=== PATIENT | female | born 1960 | race Two or more races ===

== ENCOUNTER 2022-11-03 20:55 | Emergency (ER) | payer MEDICARE, OTHER ==
[~2022-11-03] VITALS: Ht 165.1 cm; Wt 50.0 kg
[2022-11-03 22:00] LABS: Basophils # (auto) 0 10 ^3/uL (0-0.2); Basophils % (auto) 0.3 % (0.0-2.0); Eosinophils # (auto) 0.1 10 ^3/uL (0-0.8); Eosinophils % (auto) 1.1 % (0.0-7.0); Hematocrit 36.8 % (36.0-46.0); Hemoglobin 12.6 g/dL (12.2-16.2); Lymphocytes # (auto) 1.8 10 ^3/uL (0.4-5.4); Lymphocytes % (auto) 30.6 % (10.0-50.0); Mean Corpuscular Hemoglobin 31.8 pg (28.0-32.0); Mean Corpuscular Hgb Conc. 34.3 g/dL (32.0-36.0); Mean Corpuscular Volume 92.7 fL (80.0-100.0); Monocytes # (auto) 0.5 10 ^3/uL (0-1.3); Monocytes % (auto) 9.4 % (0.0-12.0); Neutrophils # (auto) 3.4 10 ^3/uL (1.6-8.6); Neutrophils % (auto) 58.6 % (37.0-80.0); Nucleated Red Blood Cells % 0.1 %; Red Blood Cells 3.97 10^6/uL (4.0-5.20); Red Cell Distribution Width 13.2 % (11.8-14.3); White Blood Cell 5.9 10^3/uL (4.4-10.8)
[2022-11-03 22:23] LABS: INR 1.01 (0.9-1.15); Partial Thromboplastin Time 27.3 sec (24.6-33.4)
[2022-11-03 22:26] LABS: Albumin 3.6 g/dL (3.4-5.0); Calcium 8.6 mg/dL (8.5-10.1); Potassium 3.7 mmol/L (3.5-5.1)
[2022-11-03 22:29] LABS: BUN/Creatinine Ratio 23.1 (10.0-20.0); Bilirubin, Total 0.3 mg/dL (0.2-1.0)
[2022-11-03] MEDS ORDERED: TETANUS-DIPTH-ACEL PERTUSSIS 0.5ML SYR Tdap IM ONE (23:30)
[2022-11-03] MEDS: HYDROcodone-ACET 10/325MG TAB PO ONE ×2 (23:44→23:57)
[2022-11-04 00:01] VITALS: BP 138/68
[2022-11-04] MEDS ORDERED: IBUP-1455 PO (00:52)
[2022-11-04] MEDS ORDERED: ACET500T58 PO (00:52)
== END 2022-11-04 01:50 | disposition home or self-care (01) ==
LOC: ER 20:55 → EDBD 20:55 → ER 11-04 01:48
DX: S01.01XA Laceration without foreign body of scalp, initial encounter (principal); W11.XXXA Fall on and from ladder, initial encounter; Y93.89 Activity, other specified; Y92.89 Other specified places as the place of occurrence of the external cause; Y99.8 Other external cause status
CPT/HCPCS: 12001; 36415; 70450; 72125; 80053; 85025; 85610; 85730; 90471; 90715

== ENCOUNTER 2022-11-14 17:04 | Inpatient (IN) | payer MEDICARE, MEDICAID ==
[~2022-11-14] VITALS: Ht 157.5 cm; Wt 63.5 kg
[~2022-11-14 17:04] MED LIST: ACET500T58 PO; IBUP-1455 PO
[2022-11-14 18:33] LABS: Basophils # (auto) 0 10 ^3/uL (0-0.2); Basophils % (auto) 0.4 % (0.0-2.0); Eosinophils # (auto) 0.1 10 ^3/uL (0-0.8); Eosinophils % (auto) 2.8 % (0.0-7.0); Lymphocytes # (auto) 1.6 10 ^3/uL (0.4-5.4); Lymphocytes % (auto) 30.6 % (10.0-50.0); Mean Corpuscular Hemoglobin 31.4 pg (28.0-32.0); Mean Corpuscular Hgb Conc. 33.4 g/dL (32.0-36.0); Monocytes # (auto) 0.5 10 ^3/uL (0-1.3); Monocytes % (auto) 9.3 % (0.0-12.0); Neutrophils # (auto) 2.9 10 ^3/uL (1.6-8.6); Neutrophils % (auto) 56.9 % (37.0-80.0); Nucleated Red Blood Cells % 0.1 %; Red Blood Cells 3.82 10^6/uL (4.0-5.20); Red Cell Distribution Width 14.2 % (11.8-14.3); White Blood Cell 5.2 10^3/uL (4.4-10.8)
[2022-11-14 18:40] LABS: Albumin 3.2 g/dL (3.4-5.0); Calcium 8.7 mg/dL (8.5-10.1); Magnesium 2.4 mg/dL (1.6-2.6); Potassium 4.1 mmol/L (3.5-5.1)
[2022-11-14 18:45] LABS: BUN/Creatinine Ratio 20.5 (10.0-20.0); Bilirubin, Total 0.3 mg/dL (0.2-1.0); Total Protein 6.4 g/dL (6.4-8.2)
[2022-11-14 18:50] LABS: INR 1.07 (0.9-1.15); Partial Thromboplastin Time 24.6 sec (24.6-33.4)
[2022-11-14] MEDS ORDERED: IOHEXOL 350 MG/ML 100ML IJ ONE (20:29)
[2022-11-15] MEDS ORDERED: LORazepam 2MG/ML-1ML VIAL IV ONE ×2 (03:00→15:30)
[2022-11-15 04:54] LABS: Acetaminophen < 2.0 ug/mL (10-30); Salicylate < 1.7 mg/dL (2.8-20.0)
[2022-11-15 06:44] LABS: Urine Bacteria NONE SEEN /hpf (None Seen); Urine Blood Negative /uL (Negative); Urine Specific Gravity 1.045 (1.001-1.035); Urine WBC 11 /hpf (0 - 5)
[2022-11-15] MEDS ORDERED: ACETAMINOPHEN 325 MG TAB PO PRN (08:15)
[2022-11-15] MEDS ORDERED: MORPHINE SULFATE INJ 2 MG/ml SYRG IV PRN (08:15)
[2022-11-15] MEDS ORDERED: SODIUM CHLORIDE 0.9% 1,000 ML IV SCH (08:15)
[2022-11-15] MEDS ORDERED: DOCUSATE SOD 100 MG CAP PO PRN (08:15)
[2022-11-15] MEDS ORDERED: NITROGLYCERIN 0.4 MG SL TAB SL PRN (08:15)
[2022-11-15] MEDS ORDERED: HYDROcodone-ACET 5/325MG TAB PO PRN (08:15)
[2022-11-15] MEDS: PANTOPRAZOLE 40 MG/10 ML VIAL INJ IV SCH (10:38)
[2022-11-15] MEDS: CEFTRIAXONE SODIUM 2 GM in D5W 5% 100 ML IV SCH (10:54)
[2022-11-15] MEDS ORDERED: LORazepam 2MG/ML-1ML VIAL IV PRN (11:00)
[2022-11-15 11:21] LABS: Folate (Folic Acid) 14.12 ng/mL (5.38-24)
[2022-11-15] MEDS ORDERED: ESCI1TAB37 PO (17:12)
[2022-11-15] MEDS ORDERED: HAL5T PO (17:12)
[2022-11-15] MEDS ORDERED: DIVA500T13 PO (17:12)
[2022-11-15] MEDS ORDERED: ATOR40TA52 PO (17:12)
[2022-11-15] MEDS ORDERED: QUET100T47 PO (17:12)
[2022-11-15] MEDS ORDERED: DONE5TAB80 PO (17:12)
[2022-11-15] MEDS: D5W/SOD CHL 0.45% 1,000 ML IV SCH (18:22)
[2022-11-16] MEDS: D5W/SOD CHL 0.45% 1,000 ML IV SCH ×3 (04:00→21:14)
[2022-11-16 05:48] LABS: Basophils # (auto) 0 10 ^3/uL (0-0.2); Basophils % (auto) 0.5 % (0.0-2.0); Eosinophils # (auto) 0.1 10 ^3/uL (0-0.8); Eosinophils % (auto) 2.1 % (0.0-7.0); Hematocrit 36.3 % (36.0-46.0); Hemoglobin 12.3 g/dL (12.2-16.2); Lymphocytes # (auto) 1.2 10 ^3/uL (0.4-5.4); Lymphocytes % (auto) 21.4 % (10.0-50.0); Mean Corpuscular Hemoglobin 31.9 pg (28.0-32.0); Mean Corpuscular Hgb Conc. 33.8 g/dL (32.0-36.0); Mean Corpuscular Volume 94.5 fL (80.0-100.0); Monocytes # (auto) 0.5 10 ^3/uL (0-1.3); Monocytes % (auto) 9.9 % (0.0-12.0); Neutrophils # (auto) 3.6 10 ^3/uL (1.6-8.6); Neutrophils % (auto) 66.1 % (37.0-80.0); Red Blood Cells 3.84 10^6/uL (4.0-5.20); Red Cell Distribution Width 14.4 % (11.8-14.3); White Blood Cell 5.5 10^3/uL (4.4-10.8)
[2022-11-16 06:05] LABS: Calcium 8.2 mg/dL (8.5-10.1); Potassium 3.7 mmol/L (3.5-5.1)
[2022-11-16 06:10] LABS: BUN/Creatinine Ratio 18.6 (10.0-20.0); Bilirubin, Total 0.4 mg/dL (0.2-1.0); Total Protein 6.3 g/dL (6.4-8.2)
[2022-11-16] MEDS: CEFTRIAXONE SODIUM 2 GM in D5W 5% 100 ML IV SCH (10:02)
[2022-11-16] MEDS: PANTOPRAZOLE 40 MG/10 ML VIAL INJ IV SCH (10:03)
[2022-11-16 10:57] VITALS: BP 145/82
[2022-11-16 17:10] VITALS: BP 137/65
[2022-11-16 17:12] VITALS: BP 137/65
[2022-11-16] MEDS: ATORVASTATIN 20 MG TAB PO SCH (21:14)
[2022-11-16 22:00] VITALS: BP 137/79
[2022-11-17 05:00] VITALS: BP 126/68
[2022-11-17] MEDS: D5W/SOD CHL 0.45% 1,000 ML IV SCH ×2 (05:48→20:00)
[2022-11-17] MEDS: QUEtiapine FUMARATE 25 MG TAB PO SCH ×2 (07:58)
[2022-11-17] MEDS: DONEPEZIL HYDROCHLORIDE 5 MG TAB PO SCH (07:58)
[2022-11-17] MEDS: HALOPERIDOL 5 MG TAB PO SCH (07:58)
[2022-11-17] MEDS: CITALOPRAM HYDROBR 20 MG TAB PO SCH (07:58)
[2022-11-17 08:30] VITALS: BP 131/67
[2022-11-17 08:35] VITALS: BP 131/67
[2022-11-17 09:08] LABS: Alcohol, Urine < 3.0 mg/dL (0-10); Amphetamine Screen, Urine NEGATIVE (NEGATIVE); Barbiturate Scree,Urine NEGATIVE (NEGATIVE); Benzodiazephine Screen, Urine NEGATIVE (NEGATIVE); Cannabinoid Screen, Urine NEGATIVE (NEGATIVE); Cocaine Screen, Urine NEGATIVE (NEGATIVE); Opiate Scree,Urine NEGATIVE (NEGATIVE); Phencyclidine Screen, Urine NEGATIVE (NEGATIVE)
[2022-11-17] MEDS: CEFTRIAXONE SODIUM 2 GM in D5W 5% 100 ML IV SCH (09:21)
[2022-11-17] MEDS: PANTOPRAZOLE 40 MG/10 ML VIAL INJ IV SCH (09:21)
[2022-11-17] MEDS ORDERED: QUEtiapine FUMARATE 100 MG TAB PO SCH (10:00)
[2022-11-17 12:45] VITALS: BP 145/73
[2022-11-17 17:00] VITALS: BP 137/74
[2022-11-17] MEDS: QUEtiapine FUMARATE 100 MG TAB PO SCH (17:13)
[2022-11-17] MEDS: ATORVASTATIN 20 MG TAB PO SCH (22:00)
[2022-11-17 23:32] VITALS: BP 101/70
[2022-11-18 05:59] VITALS: BP 118/84
[2022-11-18] MEDS: D5W/SOD CHL 0.45% 1,000 ML IV SCH ×2 (06:00→16:00)
[2022-11-18] MEDS: QUEtiapine FUMARATE 25 MG TAB PO SCH ×2 (08:00→12:36)
[2022-11-18 09:00] VITALS: BP 131/55
[2022-11-18] MEDS: CEFTRIAXONE SODIUM 2 GM in D5W 5% 100 ML IV SCH (09:26)
[2022-11-18] MEDS: PANTOPRAZOLE 40 MG/10 ML VIAL INJ IV SCH (09:26)
[2022-11-18] MEDS: CITALOPRAM HYDROBR 20 MG TAB PO SCH (09:50)
[2022-11-18] MEDS: HALOPERIDOL 5 MG TAB PO SCH (09:50)
[2022-11-18] MEDS: DONEPEZIL HYDROCHLORIDE 5 MG TAB PO SCH (12:35)
[2022-11-18 13:00] VITALS: BP 123/49
[2022-11-18 17:00] VITALS: BP 111/59
[2022-11-18] MEDS: QUEtiapine FUMARATE 100 MG TAB PO SCH (17:30)
[2022-11-18] MEDS: ATORVASTATIN 20 MG TAB PO SCH (21:56)
[2022-11-18 22:00] VITALS: BP 117/57
[2022-11-19] MEDS: D5W/SOD CHL 0.45% 1,000 ML IV SCH ×3 (00:04→15:06)
[2022-11-19 05:00] VITALS: BP 134/78
[2022-11-19] MEDS: CITALOPRAM HYDROBR 20 MG TAB PO SCH (08:39)
[2022-11-19] MEDS: HALOPERIDOL 5 MG TAB PO SCH (08:39)
[2022-11-19] MEDS: CEFTRIAXONE SODIUM 2 GM in D5W 5% 100 ML IV SCH (08:39)
[2022-11-19] MEDS: QUEtiapine FUMARATE 25 MG TAB PO SCH ×2 (08:40→12:21)
[2022-11-19] MEDS: PANTOPRAZOLE 40 MG/10 ML VIAL INJ IV SCH (08:44)
[2022-11-19 09:00] VITALS: BP 136/72
[2022-11-19] MEDS: DONEPEZIL HYDROCHLORIDE 5 MG TAB PO SCH (12:21)
[2022-11-19 12:30] VITALS: BP 124/55
[2022-11-19 17:00] VITALS: BP 122/64
[2022-11-19] MEDS: QUEtiapine FUMARATE 100 MG TAB PO SCH (17:43)
[2022-11-19] MEDS: ATORVASTATIN 20 MG TAB PO SCH (21:18)
[2022-11-19 22:00] VITALS: BP 108/49
[2022-11-20 05:00] VITALS: BP 132/58
[2022-11-20] MEDS: D5W/SOD CHL 0.45% 1,000 ML IV SCH (08:00)
[2022-11-20] MEDS: QUEtiapine FUMARATE 25 MG TAB PO SCH ×2 (08:16→12:08)
[2022-11-20 08:48] VITALS: BP 120/75
[2022-11-20] MEDS: CEFTRIAXONE SODIUM 2 GM in D5W 5% 100 ML IV SCH (10:31)
[2022-11-20] MEDS: HALOPERIDOL 5 MG TAB PO SCH (10:31)
[2022-11-20] MEDS: PANTOPRAZOLE 40 MG/10 ML VIAL INJ IV SCH (10:32)
[2022-11-20] MEDS: CITALOPRAM HYDROBR 20 MG TAB PO SCH (10:32)
[2022-11-20] MEDS: DONEPEZIL HYDROCHLORIDE 5 MG TAB PO SCH (12:08)
[2022-11-20 13:00] VITALS: BP 133/80
[2022-11-20 15:34] LABS: Basophils # (auto) 0 10 ^3/uL (0-0.2); Basophils % (auto) 0.4 % (0.0-2.0); Eosinophils # (auto) 0.2 10 ^3/uL (0-0.8); Eosinophils % (auto) 4.1 % (0.0-7.0); Hematocrit 41.1 % (36.0-46.0); Hemoglobin 13.6 g/dL (12.2-16.2); Lymphocytes # (auto) 1.2 10 ^3/uL (0.4-5.4); Lymphocytes % (auto) 29.9 % (10.0-50.0); Mean Corpuscular Hemoglobin 31.2 pg (28.0-32.0); Mean Corpuscular Volume 94.6 fL (80.0-100.0); Monocytes # (auto) 0.4 10 ^3/uL (0-1.3); Monocytes % (auto) 9.2 % (0.0-12.0); Neutrophils # (auto) 2.4 10 ^3/uL (1.6-8.6); Neutrophils % (auto) 56.4 % (37.0-80.0); Nucleated Red Blood Cells % 0.1 %; Red Blood Cells 4.34 10^6/uL (4.0-5.20); White Blood Cell 4.2 10^3/uL (4.4-10.8)
[2022-11-20 15:58] LABS: Potassium 3.7 mmol/L (3.5-5.1)
[2022-11-20 16:00] LABS: BUN/Creatinine Ratio 10.9 (10.0-20.0); Calcium 8.4 mg/dL (8.5-10.1)
[2022-11-20 16:49] VITALS: BP 134/73
[2022-11-20] MEDS: QUEtiapine FUMARATE 100 MG TAB PO SCH (17:26)
[2022-11-20 17:36] VITALS: BP 133/80
[2022-11-20] MEDS ORDERED: LORazepam 2MG/ML-1ML VIAL IV PRN (21:00)
[2022-11-20 22:00] VITALS: BP 124/66
[2022-11-20] MEDS: ATORVASTATIN 20 MG TAB PO SCH (22:06)
[2022-11-21 05:00] VITALS: BP 129/67
[2022-11-21] MEDS: QUEtiapine FUMARATE 25 MG TAB PO SCH ×2 (08:21→12:18)
[2022-11-21 09:18] VITALS: BP 135/68
[2022-11-21] MEDS: HALOPERIDOL 5 MG TAB PO SCH (09:29)
[2022-11-21] MEDS: CEFTRIAXONE SODIUM 2 GM in D5W 5% 100 ML IV SCH (09:29)
[2022-11-21] MEDS: PANTOPRAZOLE 40 MG/10 ML VIAL INJ IV SCH (09:30)
[2022-11-21] MEDS: CITALOPRAM HYDROBR 20 MG TAB PO SCH (09:30)
[2022-11-21] MEDS: DONEPEZIL HYDROCHLORIDE 5 MG TAB PO SCH (12:18)
[2022-11-21 12:30] VITALS: BP 107/71
[2022-11-21 16:56] VITALS: BP 121/69
[2022-11-21] MEDS: QUEtiapine FUMARATE 100 MG TAB PO SCH (17:16)
== END 2022-11-21 19:58 | DRG 689 ==
LOC: ER 17:04 → TELE 11-15 08:06 → TELE-WESTW 11-16 10:57
PROVIDERS: ADMIT Nurse Practitioner; ATTEND Nurse Practitioner
DX: N30.00 Acute cystitis without hematuria (principal); E43 Unspecified severe protein-calorie malnutrition; G93.41 Metabolic encephalopathy; G45.9 Transient cerebral ischemic attack, unspecified; F03.92 Unspecified dementia, unspecified severity, with psychotic disturbance; E87.3 Alkalosis; E88.09 Other disorders of plasma-protein metabolism, not elsewhere classified; F20.9 Schizophrenia, unspecified; E78.5 Hyperlipidemia, unspecified; R29.810 Facial weakness; Z68.23 Body mass index [BMI] 23.0-23.9, adult; Z86.73 Personal history of transient ischemic attack (TIA), and cerebral infarction without residual deficits; F10.10 Alcohol abuse, uncomplicated
CPT/HCPCS: 36415; 36600; 70450; 70496; 71045; 80048; 80053; 80307; 80329; 81001; 82140; 82607; 82746; 82805; 82962; 83605; 83735; 83880; 84443; 84484; 85025; 85610; 85730; 87081; 87086; 93005; 95819; 97110; 97116; 97163; 97530; 99291; C9113; G0378; J0696; J7060